=== PATIENT | female | born 1945 | race Caucasian/White ===

== ENCOUNTER 2020-12-16 12:42 | Inpatient (IN) | payer MEDICAID, OTHER ==
[~2020-12-16] VITALS: Ht 162.6 cm; Wt 68.9 kg
[~2020-12-16 12:42] MED LIST: ASPI-1406 MT; CLON0.1T PO; HYDR-4135 PO; LISI40TA13 MT; LOVA20TA2 MT; MAGN400T26 MT; REN800 PO; ROPI0.5T6 PO; SERT25TA74 MT; TOPUD PO
[2020-12-16 15:18] LABS: BASOPHILS % 1.3 % (0.0-2.0); EOSINOPHILS % 4.3 % (0.0-5.0); LYMPHOCYTES % 12.5 % (20.0-50.0); MEAN CORPUSCULAR HEMOGLOBIN 30.9 pg (28.0-32.0); MEAN CORPUSCULAR VOLUME 92.9 fL (81.0-99.0); MEAN PLATELET VOLUME 7.2 fl (7.4-10.4); MONOCYTES % 12.5 % (2.0-8.0); NEUTROPHILS % 69.4 % (40.0-76.0); PLATELET 231 x1000/uL (130-400); RED BLOOD CELL COUNT 2.16 mill/uL (4.2-5.4); RED CELL DISTRIBUTION WIDTH 16.4 % (11.6-14.6)
[2020-12-16 15:23] LABS: CHLORIDE 104 mEq/L (98-107); HEMOGLOBIN. 6.7 g/dL (12.0-16.0)
[2020-12-16 17:48] LABS: HEPATITIS B SURFACE ANTIGEN NEGATIVE
[2020-12-16 18:17] LABS: HEPATITIS A AB IGM NEGATIVE (NEGATIVE)
[2020-12-16] MEDS ORDERED: HYDRALAZINE 20MG/ML VIAL IV NR (21:45)
[2020-12-16] MEDS ORDERED: SODIUM POLYSTYRENE SULFONATE 15 G/60 ML BOT PO NR (21:45)
[2020-12-16 22:00] VITALS: BP 153/49
[2020-12-16 23:42] LABS: HEMATOCRIT 24.3 % (36.0-48.0)
[2020-12-17] VITALS: BP 153/49
[2020-12-17] MEDS ORDERED: CLONIDINE 0.1MG TABLET PO PRN (00:30)
[2020-12-17] MEDS ORDERED: OMEP40CA12 MT (00:35)
[2020-12-17] MEDS ORDERED: GABA-532 PO (00:35)
[2020-12-17] MEDS ORDERED: TRAM100C3 PO (00:35)
[2020-12-17] MEDS ORDERED: AMLO10TA80 PO (00:35)
[2020-12-17] MEDS ORDERED: SUCR1TAB MT (00:35)
[2020-12-17] MEDS ORDERED: TRAMADOL 50MG TABLET PO PRN (02:15)
[2020-12-17 04:00] VITALS: BP 167/48
[2020-12-17 06:15] LABS: BASOPHILS % 1.1 % (0.0-2.0); EOSINOPHILS % 2.3 % (0.0-5.0); HEMATOCRIT. 22.9 % (36.0-48.0); HEMOGLOBIN. 7.5 g/dL (12.0-16.0); LYMPHOCYTES % 9.2 % (20.0-50.0); MEAN CORPUSCULAR VOLUME 91.3 fL (81.0-99.0); MEAN PLATELET VOLUME 7.3 fl (7.4-10.4); MONOCYTES % 10.9 % (2.0-8.0); NEUTROPHILS % 76.5 % (40.0-76.0); PLATELET 211 x1000/uL (130-400); RED BLOOD CELL COUNT 2.51 mill/uL (4.2-5.4); RED CELL DISTRIBUTION WIDTH 15.3 % (11.6-14.6)
[2020-12-17] MEDS: SUCRALFATE 1G TABLET PO SCH ×4 (06:22→22:20)
[2020-12-17] MEDS: OMEPRAZOLE 20MG CAPSULE EXTENDED RELEASE PO SCH (06:23)
[2020-12-17 08:00] VITALS: BP 117/45
[2020-12-17] MEDS: AMLODIPINE 10MG TABLET PO SCH (09:00)
[2020-12-17] MEDS: LISINOPRIL 40MG TABLET PO SCH (09:00)
[2020-12-17] MEDS: SEVELAMER CARBONATE 800 MG TABLET PO SCH ×2 (10:07→18:11)
[2020-12-17] MEDS: ASPIRIN 81MG TABLET PO SCH (10:07)
[2020-12-17] MEDS: SERTRALINE HCL 50MG TABLET PO SCH (10:08)
[2020-12-17] MEDS: GABAPENTIN 300MG CAPSULE PO SCH (10:08)
[2020-12-17] MEDS ORDERED: ALTEPLASE 2MG/VIAL ITC SCH (13:00)
[2020-12-17 20:00] VITALS: BP 141/43
[2020-12-17] MEDS ORDERED: MAGNESIUM OXIDE 400MG TABLET PO SCH (21:00)
[2020-12-17] MEDS ORDERED: EPOETIN ALFA-EPBX 10,000 UNIT/ML VIAL SUBCUT SCH (21:00)
[2020-12-18] VITALS: BP 134/42
[2020-12-18 04:00] VITALS: BP 129/46
[2020-12-18 06:44] LABS: EOSINOPHILS % 2.5 % (0.0-5.0); HEMATOCRIT. 22.8 % (36.0-48.0); HEMOGLOBIN. 7.8 g/dL (12.0-16.0); LYMPHOCYTES % 15.2 % (20.0-50.0); MEAN CORPUSCULAR HEMOGLOBIN 31.8 pg (28.0-32.0); MEAN CORPUSCULAR VOLUME 92.3 fL (81.0-99.0); MEAN PLATELET VOLUME 7.8 fl (7.4-10.4); MONOCYTES % 9.1 % (2.0-8.0); NEUTROPHILS % 72.2 % (40.0-76.0); PLATELET 181 x1000/uL (130-400); RED BLOOD CELL COUNT 2.46 mill/uL (4.2-5.4); RED CELL DISTRIBUTION WIDTH 15.2 % (11.6-14.6)
[2020-12-18 08:00] VITALS: BP 124/54
[2020-12-18] MEDS: SEVELAMER CARBONATE 800 MG TABLET PO SCH ×3 (08:00→17:13)
[2020-12-18] MEDS: SUCRALFATE 1G TABLET PO SCH ×3 (08:00→17:13)
[2020-12-18] MEDS: OMEPRAZOLE 20MG CAPSULE EXTENDED RELEASE PO SCH (08:04)
[2020-12-18] MEDS: LISINOPRIL 40MG TABLET PO SCH (08:48)
[2020-12-18] MEDS: AMLODIPINE 10MG TABLET PO SCH (08:48)
[2020-12-18] MEDS: GABAPENTIN 300MG CAPSULE PO SCH (09:23)
[2020-12-18] MEDS: ASPIRIN 81MG TABLET PO SCH (09:23)
[2020-12-18] MEDS: SERTRALINE HCL 50MG TABLET PO SCH (09:23)
[2020-12-18] MEDS ORDERED: LOPERAMIDE HCL 2MG CAPSULE PO NR (17:15)
[2020-12-18 20:00] VITALS: BP 166/48
[2020-12-18 22:50] VITALS: BP 166/48
== END 2020-12-18 23:45 | disposition home or self-care (01) | DRG 194 ==
LOC: ER 12:42 → 6EST 15:39 → EDBEDREQ 15:42 → ENRESERV 19:18 → 6EST 12-17 00:06
PROVIDERS: ADMIT Internal Medicine; ATTEND Internal Medicine
PROC: 30233N1 Transfusion of Nonautologous Red Blood Cells into Peripheral Vein, Percutaneous Approach (ICD-10-PCS; principal; 2020-12-16)
PROC: 5A1D70Z Performance of Urinary Filtration, Intermittent, Less than 6 Hours Per Day (ICD-10-PCS; 2020-12-16)
PROC: 5A1D70Z Performance of Urinary Filtration, Intermittent, Less than 6 Hours Per Day (ICD-10-PCS; 2020-12-18)
DX: I13.2 Hypertensive heart and chronic kidney disease with heart failure and with stage 5 chronic kidney disease, or end stage renal disease (principal); E11.22 Type 2 diabetes mellitus with diabetic chronic kidney disease; N18.6 End stage renal disease; E87.5 Hyperkalemia; I50.9 Heart failure, unspecified; Z79.82 Long term (current) use of aspirin; Z79.899 Other long term (current) drug therapy; Z99.2 Dependence on renal dialysis; D63.1 Anemia in chronic kidney disease
CPT/HCPCS: 36415; 80048; 80053; 84484; 85014; 85018; 85025; 86705; 86709; 86803; 86850; 86900; 86920; 87340; 93970; 99285; J0360; J0885; J2997; P9021